=== PATIENT | male | born 1990 | race Two or more races ===

== ENCOUNTER 2016-09-22 13:09 | Emergency (ER) | payer MEDICAID, OTHER ==
[~2016-09-22] VITALS: Ht 165.1 cm; Wt 63.5 kg
[2016-09-22 14:31] VITALS: BP 122/79
== END 2016-09-22 15:07 | disposition home or self-care (01) ==
LOC: ER 13:09
DX: H10.31 Unspecified acute conjunctivitis, right eye (principal); F17.210 Nicotine dependence, cigarettes, uncomplicated

== ENCOUNTER 2016-10-10 19:36 | Emergency (ER) | payer MEDICAID ==
[~2016-10-10] VITALS: Ht 167.6 cm; Wt 62.6 kg
[2016-10-10 21:00] VITALS: BP 112/76
[2016-10-10] MEDS ORDERED: cefTRIAXone SOD 1,000 MG VL IM ONE (21:15)
== END 2016-10-10 21:49 | disposition home or self-care (01) ==
LOC: ER 19:43
DX: N34.2 Other urethritis (principal); F17.210 Nicotine dependence, cigarettes, uncomplicated; Z20.2 Contact with and (suspected) exposure to infections with a predominantly sexual mode of transmission
CPT/HCPCS: 96372; 99283; J0696